=== PATIENT | female | born 1945 | race Caucasian/White ===

== ENCOUNTER 2017-10-07 05:58 | Emergency (ER) | payer MEDICARE, BC ==
[~2017-10-07] VITALS: Ht 160 cm; Wt 59.0 kg
[2017-10-07] MEDS ORDERED: DHEA25 MG (06:30)
[2017-10-07] MEDS ORDERED: DHEA 10 MG TAB1 EACH PO (06:30)
[2017-10-07] MEDS ORDERED: TESTOSTERONE5 GM PO (06:30)
[2017-10-07] MEDS ORDERED: ASPIRIN325 MG PO (06:30)
[2017-10-07] MEDS ORDERED: ARMOUR THYROID60 MG PO (06:30)
[2017-10-07] MEDS ORDERED: PROGESTERONE100 MG PO (06:30)
[2017-10-07] MEDS ORDERED: ONDANSETRON HCL INJ 2 MG/ML VIAL IV STA ×2 (06:38→08:11)
[2017-10-07] MEDS ORDERED: MORPHINE SULFATE 2 MG/ML SYR IV STA (06:38)
[2017-10-07] MEDS ORDERED: FENTANYL CITRATE/PF 100MCG/2 ML INJ IV ONE (08:00)
[2017-10-07] MEDS ORDERED: HYDRALAZINE HCL 20 MG/ML VIAL IV STA (08:02)
[2017-10-07 08:34] VITALS: BP 173/77
== END 2017-10-07 08:50 | disposition home or self-care (01) ==
LOC: FSED 05:58
DX: G43.909 Migraine, unspecified, not intractable, without status migrainosus (principal); I10 Essential (primary) hypertension
CPT/HCPCS: 70450; 80053; 85025; 99284; J0360; J2270; J2405